=== PATIENT | female | born 1990 | race Caucasian/White ===

== ENCOUNTER 2016-06-21 03:08 | Emergency (ER) | payer MEDICARE, OTHER ==
[2016-06-21 03:36] VITALS: BMI 40.4
[2016-06-21] MEDS ORDERED: Lactated Ringer's 1,000 ML IV SCH (04:15)
--- NOTE | 2016-06-21 04:50 | OBHP ---
Datetime: 06/21/2016 04:09 IP Adm Impression: Term, intrauterine IP Admit Plan: Observation/Evaluation Admit Comment, IP Provider: 25 yr at 40.1 wks GA, obese, presents to [facility] with complaint of ctx's q2min which began last night at 10pm. Denies vaginal bleeding, LOF. + movement. Patients last clinic appointment was afternoon of 06/20 and per pt she was 4cm dilated. Patient with poor prena keyana care, sees Dr. Brian at [facility]. Patient denies any complications or abnormal labs/tests w ith this . Patient has no other concerns or complaints at this time. care/course: [facility] 06/20/16, Rh neg s/p Rhogam on 05/14/16, GBS neg, Gc/Ch neg/neg, HepBsAg n eg, HIV neg, RPR neg, Rubella Immune, no documentation of PPD/Influenza vaccine or Tdap vaccine, Feta l Growth US 06/12/16 BPP 8/8, AC 32%, EFW 7lbs 2 oz OBHx: x 1 at [facility] in 2011 (Male 6lbs 12oz) PMHx: Asthma (last use Ventolin HFA 90mcg in Dec 2015) SurHx: none SocHx: denies smoking/Etoh/drugs Med: PNV, Ventolin HFA 90mcg Allergies: NKDA PE: VSS, patient obese, in no acute distress Cardiac: S1 S2 normal, no murmurs/rubs/gallops Lungs: CTABL Abd: gravid, non-tender Ext: no edema SVE: cervix dilated 4cm/effacement 90%/ station -3 Monitoring: FHR 120bpm, moderate variability 6-25bpm, accelerations 15x15, no decels A: IUP at 40.1 wks GA, obese, cervix dilated 4cm, membranes intact P: -observe/evaluate -IV insertion, CBC, Type and screen -IVF-LR 1L -continuous monitoring -reassess for labor progression in 3 hrs Virgie Esposito M.D. PGY1 OB Hospitalist Addendum: Pt seen and examined by me. Agree w/ above. 25 yo at 40+1 wks w / ctxns. VE: 4-5/ 90/-3/ posterior at 04:05am. Will recheck cervix in a few hours. (ES) Pelvic Type - PN: Adequate Extremities - PN: Normal Abdomen - PN: Normal Back - PN: Normal Lungs - PN: Normal Heart - PN: Normal Thyroid - PN: Normal Neurologic - PN: Normal HEENT - PN: Normal General - PN: Normal Presentation-Admit: Vertex FHR - Baseline A Provider: 120 Comments, ACOG Physical Exam: SVE: cervix dilated 4cm/effacement 90%/ station -3 Gestation - Est Wks by US: 40.1 Vital Signs Provider: Reviewed; Within Normal Limits IP Chief Complaint: Uterine contractions NICHD Variability Prov Fetus A: Moderate 6-25bpm NICHD Accel Fetus A IP Provider: 15X15 FHR Category Provider Fetus A: Category I NICHD Decel Fetus A IP Provider: None Dilatation, Provider: 4 Effacement, Provider: 90 Station, Provider: -3 Genitourinary Exam: Normal DTRs - PN: Normal
--- NOTE | 2016-06-21 07:37 | OBPN ---
Datetime: 06/21/2016 07:33 IP Procedures: Sterile Vag Exam IP Progress Plan: Discharge Membranes, Provider: Intact FHR - Baseline A Provider: 120 IP Progress Note Comment: 25 yo at 40+1 wks reports that she feels better after receiving IV F. VE unchanged Pt discharged home w/ labor precautions, told to f/u w/ clinic in a few days (ES) Vital Signs Provider: Reviewed NICHD Accel Fetus A IP Provider: 15X15 FHR Category Provider Fetus A: Category I NICHD Variability Prov Fetus A: Moderate 6-25bpm Dilatation, Provider: 4 Effacement, Provider: 90 Station, Provider: -3 NICHD Decel Fetus A IP Provider: None Datetime: 06/21/2016 04:09 Gestation - Est Wks by US: 40.1 Presentation-Admit: Vertex
--- NOTE | 2016-06-21 07:39 | OBDCSUM ---
Datetime: 06/21/2016 07:27 Discharged to, Provider: Home Follow up at, Provider: [employer] Disch Instr Activity: Normal activity Disch Instr Diet: Regular Discharge Diet restrict Prov: Please maintain any restrictions your primary earth moving technician has given you Discharge Diagnosis, Provider: False Labor - Undelivered Discharge Time: 06/21/2016 07:45 Follow up in weeks, Provider: This week
== END 2016-06-21 07:45 | disposition home or self-care (01) ==
LOC: H.EROB2 03:08
DX: O47.1 False labor at or after 37 completed weeks of gestation (principal); O48.0 Post-term pregnancy; Z3A.40 40 weeks gestation of pregnancy; O99.213 Obesity complicating pregnancy, third trimester

== ENCOUNTER 2016-06-26 12:16 | Emergency (ER) | payer MEDICARE, OTHER ==
--- NOTE | 2016-06-27 08:25 | OBHP ---
Datetime: 06/26/2016 08:16 IP Adm Impression: Term, intrauterine ; No Active Labor IP Admit Plan: Observation/Evaluation; Discharge home Admit Comment, IP Provider: 25-year-old 0-1 at 39 weeks and 6 days gestational age presented t o OB ED complaining of contractions. No vaginal bleeding, leakage of fluids. Patient reports good fet al movement. records reviewed. Past medical history none Past surgical history none Medications vitamins No known drug allergies Obstetrical history full-term normal spontaneous vaginal delivery 1 Social history no tobacco, no drugs, no alcohol Physical exam: Deferred physical exam findings Assessment: 25-year-old 0-1 at 39 weeks and 6 days gestational age. Patient observed at [facility] for 3-4 hours, no evidence of active labor at this time. Both maternal well-being and well-be ing reassuring at this time. Plan: Discharge home with labor precautions. Patient has follow-up scheduled for tomorrow at clinic. Pelvic Type - PN: Adequate Extremities - PN: Normal Abdomen - PN: Normal Back - PN: Normal Breast - PN: Normal Lungs - PN: Normal Heart - PN: Normal Thyroid - PN: Normal Neurologic - PN: Normal HEENT - PN: Normal General - PN: Normal FHR - Baseline A Provider: 130s-140s Membranes, Provider: Intact Contraction Comments Provider: occasional Pool Provider: Negative IP Hx Assessment: The History has been Reviewed and is Current EGA AdmitDate IP: 40.6 Vital Signs Provider: Reviewed; Within Normal Limits IP Chief Complaint: Uterine contractions NICHD Variability Prov Fetus A: Moderate 6-25bpm NICHD Accel Fetus A IP Provider: 15X15 FHR Category Provider Fetus A: Category I NICHD Decel Fetus A IP Provider: None Dilatation, Provider: 3-4 Effacement, Provider: 50 Station, Provider: -4 Genitourinary Exam: Normal DTRs - PN: Normal
== END 2016-06-26 15:45 | disposition home or self-care (01) ==
LOC: H.EROB2 12:16
DX: O60.03 Preterm labor without delivery, third trimester (principal); Z3A.39 39 weeks gestation of pregnancy